=== PATIENT | female | born 1950 | race Two or more races ===

== ENCOUNTER 2018-12-15 13:36 | Outpatient (CLI) | payer MEDICARE, MEDICAID ==
[~2018-12-15] VITALS: Ht 165.1 cm; Wt 73.0 kg
--- NOTE | 2018-12-15 16:30 | Consultation ---
DATE OF CONSULTATION: 12/15/2018 CONSULTING PHYSICIAN: Berny Camilo M.D. CHIEF COMPLAINT: Screening colonoscopy evaluation, chronic GERD. HISTORY OF PRESENT ILLNESS: This is a very pleasant 68-year-old female, patient of Dr. Donaldson, who was referred to us for evaluation for colonoscopy. The patient at this time is asymptomatic except for mild GERD. PAST MEDICAL HISTORY: Hypertension. ALLERGIES: No known allergies. MEDICATIONS: Please see medication reconciliation list. SOCIAL HISTORY: The patient denies any tobacco, alcohol, or illicit drug abuse. PAST SURGICAL HISTORY: None. REVIEW OF SYSTEMS: A 10-point review of systems was performed and pertinent positives in HPI. PHYSICAL EXAMINATION: VITAL SIGNS: Temperature 98.3, pulse is 77, blood pressure is 120/55. HEENT: Normocephalic and atraumatic. No scleral icterus. NECK: Supple. No evidence of obvious adenopathy. CARDIOVASCULAR: Regular rhythm. Plus S1 and S2. No obvious murmur. LUNGS: Clear to auscultation bilaterally. ABDOMEN: Positive bowel sounds. Soft, nontender. No rebound. No guarding. No peritoneal sign. EXTREMITIES: No cyanosis, no clubbing, and no edema. LABORATORY DATA: Not available. ASSESSMENT AND PLAN: This is a 68-year-old female, who was referred for us for screening colonoscopy and also complaint of some chronic GERD. Plan to do endoscopy and colonoscopy scheduled for this Saturday. I want to thank Dr. Donaldson for this kind referral. Berny Camilo M.D. DR: Ranjith JOB#: [id number] CC: Tom Donaldson M.D.; Fax#: [phone]
[2018-12-16] MEDS ORDERED: AVAPRO300 MG ORAL (08:30)
[2018-12-16 08:31] VITALS: BP 120/65
== END 2018-12-15 14:06 | disposition home or self-care (01) ==
LOC: PAN 13:36
DX: Z12.11 Encounter for screening for malignant neoplasm of colon (principal); K21.9 Gastro-esophageal reflux disease without esophagitis; I10 Essential (primary) hypertension
CPT/HCPCS: 99202

== ENCOUNTER 2018-12-19 07:04 | Day surgery (SDC) | payer MEDICARE, MEDICAID ==
[~2018-12-19] VITALS: Ht 167.6 cm; Wt 68.0 kg
[2018-12-19] VITALS (8 sets, daily range): BP systolic 117–146; BP diastolic 73–81
[~2018-12-19 07:04] MED LIST: AVAPRO300 MG ORAL
[2018-12-19] MEDS ORDERED: AMLODIPINE BESY10 MG ORAL (07:48)
[2018-12-19] MEDS ORDERED: NORMODYNE200 MG ORAL (07:50)
--- NOTE | 2018-12-19 08:25 | Anethesia Preoperative Eval ---
Anesthesia Pre-op PMH/ROS General Date of Evaluation: Dec 19, 2018 Time of Evaluation: 08:24 Anesthesiologist: La Joseph CRNA ASA Score: ASA 2 Mallampati Score Class I : Soft palate, uvula, fauces, pillars visible Class II: Soft palate, uvula, fauces visible Class III: Soft palate, base of uvula visible Class IV: Only hard plate visible Mallampati Classification: Class II Surgeon: Ton Diagnosis: GERD, colon screening Surgical Procedure: EGD diagnostic, colon screening Anesthesia History: none Family History: no anesthesia problems Allergies: Coded Allergies: No Known Allergies (Unverified , 12/19/18) Medications: see eMAR Patient NPO?: Yes NPO Date: Dec 19, 2018 NPO Time: 00:00 Past Medical History Cardiovascular: Reports: HTN; Denies: CAD, MA, valve dz, arrhythmia, other Pulmonary: Denies: asthma, COPD, SHIRA, other Neurologic/Psychiatric: Denies: dementia, CVA, depression/anxiety, TIA, other Endocrine: Denies: DM, hypothyroidism, steroids, other HEENT: Reports: cataract (L), cataract (R) Hematology/Immune: Denies: anemia, DVT, bleeding disorder, other Musculoskeletal/Integumentary: Reports: other - chronic lower back pain PMH Narrative: as above PSxH Narrative: none Anesthesia Pre-op Phys. Exam Physician Exam Last Vital Signs Date Time Temp Pulse Resp B/P (MAP) Pulse Ox O2 Delivery O2 Flow Rate FiO2 12/19/18 07:43 Room Air 12/19/18 07:42 97.3 80 18 146/81 97 Constitutional: NAD Neurologic: CN 2-12 intact Cardiovascular: RRR Respiratory: CTA Gastrointestinal: S/NT/ND Airway Exam Mallampati Score: Class II MO: full Neck: FROM TMD: > 3 FB ROM: full Teeth: missing Dentures: upper Anesthesia Pre-op A/P Studies Pre-op Studies: EKG - NSR Risk Assessment & Plan Assessment: ASA 2, ok to proceed Plan: MAC Status Change Before Surgery: No Pre-Antibiotics Given Within 1 Hr of Incision: La Melo CRNA Dec 19, 2018 08:25
[2018-12-19] MEDS ORDERED: Propofol 200mg/20ml IV ONE (09:00)
[2018-12-19] MEDS ORDERED: Lidocaine 1% MPF 10mg/ml 5ml ONE (09:00)
--- NOTE | 2018-12-19 09:25 | Pre-Procedure Note/Attestation ---
Pre-Procedure Note/Attestation Complete Prior to Procedure Planned Procedure: not applicable Procedure Narrative: esophagogastroduodenoscopy and colonoscopy Indications for Procedure Pre-Operative Diagnosis: screening colon, GERD Attestation I attest that I discussed the nature of the procedure; its benefits; risks and complications; and alternatives (and the risks and benefits of such alternatives ), prior to the procedure, with the patient (or the patient's legal client service representative). I attest that, if there was a reasonable possibility of needing a blood transfusion, the patient (or the patient's legal client service representative) was given the [facility] standardized written summary, pursuant to the [place] Blood Safety Act ([place] Health and Safety Code # 1645, as amended). I attest that I re-evaluated the patient just prior to the surgery and that there has been no change in the patient's H&P, except as documented below: Berny Camilo MD Dec 19, 2018 09:25
--- NOTE | 2018-12-19 09:53 | Endoscopy Procedure Note ---
Endoscopy Procedure Note General Indication for Procedure: screening colon, GERD Procedures Performed: EGD, colonoscopy Operative Findings/Diagnosis: gastritis, diverticulosis Specimen: yes Pt Tolerated Procedure Well: Yes Estimated Blood Loss: none Anesthesia Anesthesiologist: jeramy Anesthesia: MAC Inserted Devices Implant(s) used?: No Quality Quality of Bowel Preparation: Excellent Did scope reach the cecum?: Yes Was there any complications?: No GI Core Measures 50 yrs or older w/o bx or poly: No 10yrs. F/U not recommended: Yes If not recommended, why?: Above average risk 10 yrs. F/U needed: Yes 18 years or older w/prev. colo: No Berny Camilo MD Dec 19, 2018 09:53
--- NOTE | 2018-12-19 09:59 | Immediate Post-Op Evaluation ---
Immediate Post-Op Evalulation Immediate Post-Op Evalulation Procedure: EGD, colonoscopy Date of Evaluation: Dec 19, 2018 Time of Evaluation: 09:55 IV Fluids: 0.9 NS 750 ml Blood Pressure Systolic: 117 Blood Pressure Diastolic: 75 Pulse Rate: 76 Respiratory Rate: 14 O2 Sat by Pulse Oximetry: 100 Temperature (Fahrenheit): 97.4 Pain Score (1-10): 0 Nausea: No Vomiting: No Patient Status: awake, reacts, patent Hydration Status: adequate Given Within 1 Hr of Incision: La Melo CRNA Dec 19, 2018 09:59
--- NOTE | 2018-12-19 14:25 | 48 Hour Post Anesthesia Eval ---
Post Anesthesia Evaluation Procedure: EGD, colonoscopy Date of Evaluation: Dec 19, 2018 Time of Evaluation: 14:24 Blood Pressure Systolic: 124 0: 77 Pulse Rate: 77 Respiratory Rate: 22 Temperature (Fahrenheit): 97.7 O2 Sat by Pulse Oximetry: 97 Airway: patent Nausea: No Vomiting: No Pain Intensity: 0 Hydration Status: adequate Cardiopulmonary Status: stable Mental Status/LOC: patient returned to baseline Follow-up Care/Observations: per GI Post-Anesthesia Complications: none Follow-up care needed: ready to discharge La Joseph CRNA Dec 19, 2018 14:25
--- NOTE | 2018-12-19 15:00 | Procedure Note ---
DATE OF PROCEDURE: 12/19/2018 SURGEON: Berny Camilo M.D. PROCEDURE: Upper endoscopy with biopsy and colonoscopy. ANESTHESIA: Per Diandra OSBORNE. INSTRUMENT: Olympus adult flexible upper endoscope and colonoscope. INDICATIONS: 1. Screening colonoscopy evaluation. 2. Chronic abdominal pain. 3. Chronic GERD. REASON FOR PROCEDURE: The procedure, risks, benefits, and possible consequences, including hemorrhage, aspiration, perforation and infection, and alternative treatments, were explained to the patient/legal guardian by Dr. Berny Camilo and the patient/legal guardian understood and accepted these risks. PROCEDURE IN DETAIL: After informed consent was obtained and the patient was adequately sedated, Olympus upper endoscope was advanced from the mouth to the second portion of the duodenum and retroflexion was performed in the stomach. The patient had diffuse gastritis. Random biopsy from antrum was obtained to rule out H. pylori infection. Otherwise, the rest of the upper endoscopic examination grossly looked within normal limits. At this time, the upper endoscope was retrieved and the patient was turned over for colonoscopy. First, rectal exam was performed, which was positive for internal hemorrhoids. Then, the scope was advanced from the rectum into the cecum and then subsequently in the terminal ileum. Quality of prep was very good. The patient had evidence of significant diverticulosis in the left colon, otherwise normal colonoscopy examination. No polyp was seen. Retroflexion of rectum showed evidence of internal hemorrhoids. SUMMARY OF FINDINGS: 1. Gastritis, status post biopsy to rule out H. pylori infection. 2. Diverticulosis of the left colon. 3. Internal hemorrhoids. RECOMMENDATIONS: 1. Follow up biopsy results and treat accordingly. 2. We recommend repeat colonoscopy in 5 years. I want to thank, Dr. Donaldson for this kind referral. Berny Camilo M.D. DR: Rya JOB#: [id number] CC: Tom Donaldson M.D.; Fax#: [phone]
--- NOTE | 2019-01-02 11:29 | Short Stay Surgery H&P ---
History of Present Illness History of Present Illness Chief Complaint see recent office note HPI Kirstie Jones is a 68 year old female who was admitted on for Gerd,Colon Screening Patient History Allergies: Coded Allergies: No Known Allergies (Unverified , 12/19/18) Medication History Scheduled Amlodipine Besylate* (Amlodipine Besylate*), 10 MG ORAL DAILY, (Reported) Irbesartan* (Avapro*), 300 MG ORAL DAILY, (Reported) Labetalol HCl (Labetalol HCl), 200 MG ORAL EVERY 12 HOURS, (Reported) Plan Attestation Are the patient's medical conditions optimized for surgery? Berny Camilo MD Jan 02, 2019 11:29
== END 2018-12-19 11:10 | disposition home or self-care (01) ==
LOC: GAS 07:04
DX: Z12.11 Encounter for screening for malignant neoplasm of colon (principal); K64.8 Other hemorrhoids; K57.30 Diverticulosis of large intestine without perforation or abscess without bleeding; K21.9 Gastro-esophageal reflux disease without esophagitis; K29.50 Unspecified chronic gastritis without bleeding; I10 Essential (primary) hypertension; G89.29 Other chronic pain
CPT/HCPCS: 43239; 45378; 93005; J2704; 94003; 94150